=== PATIENT | male | born 1995 | race Caucasian/White ===

== ENCOUNTER 2018-12-18 19:12 | Emergency (ER) | payer OTHER ==
[2018-12-18 19:29] VITALS: TEMP 98.1; BMI 38.7
--- NOTE | 2018-12-18 19:34 | PDOC ---
Rapid Medical Evaluation Chief Complaint: Pain Time Seen by Provider: 12/18/18 19:29 Medical Evaluation: Allergies Allergy/AdvReac Type Severity Reaction Status Date / Time No Known Allergies Allergy Verified 12/18/18 19:30 Vital Signs Temp Pulse Resp BP Pulse Ox 98.1 F 98 H 18 122/77 98 12/18/18 19:25 12/18/18 19:25 12/18/18 19:25 12/18/18 19:25 12/18/18 19:25 12/18/18 19:30 I have performed a brief in-person evaluation of this patient. The patient presents with a chief complaint of:epigastric/ruq pain x 2 week w/ nausea Pertinent physical exam findings:stable and well immanuel w/ +ttp to epigastrium I have ordered the following:labs The patient will proceed to the ED for further evaluation. Discharge Disposition - Diagnosis Abdominal pain Qualifiers: Abdominal location: upper abdomen, unspecified Qualified Code(s): R10.10 - Upper abdominal pain, unspecified - Referrals - Patient Instructions - Post Discharge Activity
[2018-12-18] MEDS ORDERED: ACETAMINOPHEN 1000 MG/100 ML VIAL (NON FORMULARY) IVPB ONE (21:20)
[2018-12-18] MEDS ORDERED: SODIUM CHLORIDE 0.9% 500 ML INFUS.BAG IV ONE (21:20)
[2018-12-18 21:26] LABS: BASO % 0.6 % (0-2.0); EOS % 1.5 % (0-4.5); HEMOGLOBIN 14.9 GM/dL (11.7-16.9); LYMPH % 29.2 % (8-40); MCH 28.3 pg (25.7-33.7); MCHC 33.8 g/dl (32.0-35.9); MEAN CELL VOLUME 83.7 fl (80-96); MEAN PLT VOLUME 7.4 fl (7.5-11.1); MONO % 7.2 % (3.8-10.2); NEUT % 61.5 % (42.8-82.8); PLATELET COUNT 222 K/MM3 (134-434); RBC 5.26 M/mm3 (4.00-5.60); WHITE BLOOD COUNT 11.8 K/mm3 (4.0-10.0)
[2018-12-18] MEDS ORDERED: ACETAMINOPHEN INJECTION 100 ML IVPB ONE (21:28)
--- NOTE | 2018-12-18 21:29 | PDOC ---
History of Present Illness - General Chief Complaint: Pain Stated Complaint: ABD PAIN Time Seen by Provider: 12/18/18 19:29 - History of Present Illness Initial Comments: The pt is a 23M who presents w/ 2 weeks of epigastric/RUQ abdominal pain. The pain is described as intermittent, non-radiating, not exacerbated or alleviated by anything he can identify, is associated with nausea. He has never had pain like this before and has not tried taking anything for the pain. The pain is not associated w/ meals. When it occurs it lasts for several minutes at a time and will resolve spontaneously. Denies fevers/chills, SUH, vision changes, SOB, or changes in sensation/strength 12/18/18 21:22 Past History - Past Medical History Allergies/Adverse Reactions: Allergies Allergy/AdvReac Type Severity Reaction Status Date / Time No Known Allergies Allergy Verified 12/18/18 19:30 Home Medications: Ambulatory Orders NK [No Known Home Medication] 02/19/15 COPD: No - Immunization History Immunization Up to Date: Yes - Suicide/Smoking/Psychosocial Hx Smoking Status: No Smoking History: Never smoked Have you smoked in the past 12 months: Yes Number of Cigarettes Smoked Daily: 3 Cigars Per Day: 0 Hx Alcohol Use: No Drug/Substance Use Hx: No Substance Use Type: None Review of Systems - Review of Systems Able to Perform ROS?: Yes Comments:: GENERAL/CONSTITUTIONAL: No fever or chills. No weakness HEAD, EYES, EARS, NOSE AND THROAT: No change in vision. No ear pain or discharge. No sore throat CARDIOVASCULAR: No chest pain or shortness of breath RESPIRATORY: Denies cough, hemoptysis GENITOURINARY: No dysuria, frequency, or change in urination MUSCULOSKELETAL: No joint or muscle swelling or pain. No neck or back pain SKIN: No rash NEUROLOGIC: No headache, vertigo, loss of consciousness, or change in strength/ sensation ENDOCRINE: No increased thirst. No abnormal weight change HEMATOLOGIC/LYMPHATIC: No anemia, easy bleeding, or history of blood clots ALLERGIC/IMMUNOLOGIC: No hives or skin allergy 12/18/18 21:29 Is the patient limited Tuvaluan proficient: No *Physical Exam - Vital Signs Last Vital Signs Temp Pulse Resp BP Pulse Ox 98.1 F 98 H 18 122/77 98 12/18/18 19:25 12/18/18 19:25 12/18/18 19:25 12/18/18 19:25 12/18/18 19:25 - Physical Exam Comments: GENERAL: Awake, alert, and oriented to person/place/time, in no acute distress HEAD: No signs of trauma, normocephalic, atraumatic EYES: PERRLA, EOMI, sclera anicteric, conjunctiva clear ENT: Hearing grossly normal, nares patent, oropharynx clear without exudates. Moist mucosa LUNGS: No distress, speaks full sentences, clear to auscultation bilaterally HEART: Regular rate and rhythm, normal S1 and S2, no murmurs appreciated, peripheral pulses normal and equal bilaterally ABDOMEN: Soft, RUQ/epigastric TTP w/ +Landaverde's sign w/o rebound or guarding, normoactive bowel sounds EXTREMITIES: Normal inspection, Normal range of motion, no edema. No clubbing or cyanosis NEUROLOGICAL: Cranial nerves II through XII grossly intact. Normal speech, no focal sensorimotor deficits SKIN: Warm, Dry 12/18/18 21:29 ED Treatment Course - LABORATORY CBC & Chemistry Diagram: 12/18/18 21:00 12/18/18 21:00 - RADIOLOGY Radiology Studies Ordered: Category Date Time Status ABDOMEN US -LIMITED [US] Stat Ultrasound 12/18/18 21:20 Ordered Medical Decision Making - Medical Decision Making The pt is a 23M w/ no reported PMH who presents for evaluation of 2 weeks of intermittent epigastric abdominal pain w/ associated nausea. DDx: cholecysitits/cholelithiasis/choledocholithiasis, nephrolithiasis, PUD, less likely pancreatitis, SBO, pyelonephritis ED Course Labs sent RUQ U/S IVF Ofirmev 1g IV once 12/18/18 21:30 No anemia Lytes wnl LFTs wnl Lipase wnl UA w/o evidence of UTI US pending 12/18/18 22:12 US w/o cholelithiaiasis or cholecystitis Plan for D/C w/ PCP f/u Discharge instructions and return precautions given Pt in agreement and verbalized understanding Dispo: home 12/18/18 23:21 *DC/Admit/Observation/Transfer Diagnosis at time of Disposition: Abdominal pain Qualifiers: Abdominal location: upper abdomen, unspecified Qualified Code(s): R10.10 - Upper abdominal pain, unspecified - Discharge Dispostion Disposition: HOME Condition at time of disposition: Improved Decision to Admit order: No - Referrals Referrals: Elizabeth Franklin MD [Staff Physician] - - Patient Instructions Printed Discharge Instructions: DI for Peptic Ulcer Additional Instructions: You were seen in the Emergency Department for evaluation of abdominal pain. Your labs were unremarkable and your imaging was negative for acute pathology. Review the handout provided at discharge. Follow up with your primary care provider or the referral provided. You may take Maalox and Pepcid over the counter for your symptoms. Return to the Emergency Department if you develop fevers/chills, worsening pain, inability to tolerate food/drink, or any new/ concerning symptoms. - Post Discharge Activity
[2018-12-18 21:57] LABS: ALBUMIN 3.7 g/dl (3.4-5.0); ALK PHOS 110 U/L (45-117); ANION GAP 8 MMOL/L (8-16); BILIRUBIN,TOTAL 0.2 mg/dL (0.2-1); BLOOD UREA NITROGEN 17 mg/dL (7-18); CALCIUM 8.8 mg/dL (8.5-10.1); CHLORIDE 109 mmol/L (98-107); CO2 25 mmol/L (21-32); CREATININE 1.3 mg/dL (0.55-1.3); GLUCOSE,RANDOM 113 mg/dL (74-106); LIPASE 74 U/L (73-393); POTASSIUM 4.1 mmol/L (3.5-5.1); SGOT/AST 20 U/L (15-37); SGPT/ALT 31 U/L (13-61); SODIUM 142 mmol/L (136-145); TOT PROT 6.9 g/dl (6.4-8.2)
[2018-12-18 22:04] LABS: URINE APPEARANCE CLEAR; URINE BILIRUBIN NEGATIVE (NEGATIVE); URINE COLOR YELLOW; URINE GLUCOSE (UA) NEGATIVE (NEGATIVE); URINE KETONE TRACE (NEGATIVE); URINE LEUK ESTERASE NEGATIVE (NEGATIVE); URINE NITRITE NEGATIVE (NEGATIVE); URINE PROTEIN NEGATIVE (NEGATIVE); URINE UROBILINOGEN 0.2 mg/dL (0.2-1.0)
[2018-12-18 23:47] VITALS: BP 138/72; PULSE 83
== END 2018-12-18 23:46 | disposition home or self-care (01) ==
LOC: JER 19:12
PROC: 3E033NZ Introduction of Analgesics, Hypnotics, Sedatives into Peripheral Vein, Percutaneous Approach (ICD-10-PCS; principal; 2018-12-18)
DX: K21.9 Gastro-esophageal reflux disease without esophagitis (principal)
CPT/HCPCS: 36415; 76705-TC; 80053; 81003; 83690; 85025; 99282-25; J0131

== ENCOUNTER 2018-12-20 04:40 | Day surgery (SDC) | payer OTHER ==
[2018-12-20 05:55] VITALS: BMI 38.7
[2018-12-20] MEDS ORDERED: SODIUM CHLORIDE 0.9% 500 ML INFUS.BAG IV ONE (05:58)
[2018-12-20 06:38] LABS: HEMATOCRIT 43.1 % (35.4-49); HEMOGLOBIN 14.8 GM/dL (11.7-16.9); MCH 28.2 pg (25.7-33.7); MCHC 34.3 g/dl (32.0-35.9); MEAN CELL VOLUME 82.3 fl (80-96); MEAN PLT VOLUME 7.2 fl (7.5-11.1); PLATELET COUNT 251 K/MM3 (134-434); RBC 5.24 M/mm3 (4.00-5.60); RDW 14.5 % (11.9-15.9); WHITE BLOOD COUNT 13.8 K/mm3 (4.0-10.0)
[2018-12-20 07:14] LABS: ALBUMIN 3.7 g/dl (3.4-5.0); ALK PHOS 109 U/L (45-117); ANION GAP 8 MMOL/L (8-16); BILIRUBIN,TOTAL 0.6 mg/dL (0.2-1); BLOOD UREA NITROGEN 10 mg/dL (7-18); CALCIUM 9.1 mg/dL (8.5-10.1); CHLORIDE 105 mmol/L (98-107); CO2 24 mmol/L (21-32); GLUCOSE,RANDOM 86 mg/dL (74-106); LIPASE 56 U/L (73-393); POTASSIUM 3.9 mmol/L (3.5-5.1); SGOT/AST 20 U/L (15-37); SGPT/ALT 28 U/L (13-61); SODIUM 136 mmol/L (136-145); TOT PROT 7.4 g/dl (6.4-8.2)
[2018-12-20] MEDS ORDERED: ONDANSETRON 4 MG/2 ML VIAL IVPUSH ONE (07:34)
[2018-12-20] MEDS ORDERED: morphine CARPU-JECT 4 MG/1 ML DISP.SYRIN IVPUSH ONE ×2 (07:34→11:50)
[2018-12-20] MEDS ORDERED: ONDANSETRON 4 MG/2 ML VIAL ONE (07:40)
[2018-12-20] MEDS ORDERED: morphine SULFATE 4 MG/ML VIAL ONE ×2 (07:40→11:51)
--- NOTE | 2018-12-20 08:37 | PDOC ---
Documentation entered by Myah Denson SCRIBE, acting as scribe for Felisha Quiroga MD. Felisha Quiroga MD: This documentation has been prepared by the zoeibe, Myah Denson SCRIBE, under my direction and personally reviewed by me in its entirety. I confirm that the documentation accurately reflects all work, treatment, procedures, and medical decision making performed by me. History of Present Illness - General Chief Complaint: Pain Stated Complaint: ABD PAIN History Source: Patient Exam Limitations: No Limitations - History of Present Illness Initial Comments: 12/20/18 07:59 23 yo M no pmhx here with abdominal pain since last night. The patient states that he was at home last night when he felt an onset of diffuse abdominal pain. The patient reports some associated cold sweats. Constipation and nausea. last bm was yesterday. no vomiting. no sick contacts. pain worse with walking . was seen in ed yesterday, had labs ua and us ruq which was unremarakble. dc home. woke up today feeling worse so he came to the ED. the patient denies any recent or past abdominal surgeries or trauma. He denies any dysuria or hematuria. The patient denies any fever, vomiting, headache, dizziness, weakness, chest pain or shortness of breath. The patient denies any other complaints. 12/20/18 08:22 Past History - Past Medical History Allergies/Adverse Reactions: Allergies Allergy/AdvReac Type Severity Reaction Status Date / Time No Known Allergies Allergy Verified 12/20/18 05:55 Home Medications: Ambulatory Orders NK [No Known Home Medication] 02/19/15 COPD: No - Immunization History Immunization Up to Date: Yes - Suicide/Smoking/Psychosocial Hx Smoking Status: No Smoking History: Never smoked Have you smoked in the past 12 months: No Number of Cigarettes Smoked Daily: 3 Cigars Per Day: 0 Information on smoking cessation initiated: No Hx Alcohol Use: No Drug/Substance Use Hx: No Substance Use Type: None Review of Systems - Review of Systems Able to Perform ROS?: Yes Comments:: 12/20/18 07:59 GENERAL/CONSTITUTIONAL: No fever or chills. No weakness. HEAD, EYES, EARS, NOSE AND THROAT: No change in vision. No ear pain or discharge. No sore throat. CARDIOVASCULAR: No chest pain or shortness of breath. RESPIRATORY: No cough, wheezing, or hemoptysis. GASTROINTESTINAL:(+)abdominal pain, nausea. Constipation. No vomiting, diarrhea. GENITOURINARY: No dysuria, frequency, or change in urination. MUSCULOSKELETAL: No joint or muscle swelling or pain. No neck or back pain. SKIN: No rash NEUROLOGIC: No headache, vertigo, loss of consciousness, or change in strength/ sensation. ENDOCRINE: No increased thirst. No abnormal weight change. HEMATOLOGIC/LYMPHATIC: No anemia, easy bleeding, or history of blood clots. ALLERGIC/IMMUNOLOGIC: No hives or skin allergy. Constitutional: No: Chills, Diaphoresis, Fever HEENTM: No: Eye Pain Respiratory: No: Cough, Orthopnea Cardiac (ROS): No: Chest Pain, Edema ABD/GI: Yes: Constipated, Nausea, Other (abd pain) : No: Burning, Dysuria Musculoskeletal: No: Back Pain Neurological: No: Headache All Other Systems: Reviewed and Negative *Physical Exam - Vital Signs Last Vital Signs Temp Pulse Resp BP Pulse Ox 98.1 F 64 18 135/78 97 12/20/18 04:45 12/20/18 04:45 12/20/18 04:45 12/20/18 04:45 12/20/18 04:45 - Physical Exam Comments: 12/20/18 08:24 awake alert lungs clear bilaterally heart rrr no mrg abd soft RLQ ttp, right mid quad ttp. no rebound no guarding. skin warm and dry. nuero alert oriented x 3. ED Treatment Course - LABORATORY CBC & Chemistry Diagram: 12/20/18 06:20 12/20/18 06:20 - ADDITIONAL ORDERS Additional order review: Laboratory Results 12/20/18 06:20 Sodium 136 Potassium 3.9 Chloride 105 Carbon Dioxide 24 Anion Gap 8 BUN 10 Creatinine 1.0 Creat Clearance w eGFR 93.44 Random Glucose 86 Calcium 9.1 Total Bilirubin 0.6 AST 20 ALT 28 Alkaline Phosphatase 109 Total Protein 7.4 Albumin 3.7 Lipase 56 L 12/20/18 06:20 RBC 5.24 MCV 82.3 MCHC 34.3 RDW 14.5 MPV 7.2 L - RADIOLOGY Radiology Studies Ordered: Category Date Time Status ABDOMEN & PELVIS CT WITH CONTR [CT] Stat CT Scan 12/20/18 07:36 Ordered - Medications Given in the ED: ED Medications Discontinued Medications Generic Name Dose Route Start Last Admin Trade Name Tanoq PRN Reason Stop Dose Admin Sodium Chloride 1,000 ml 12/20/18 05:58 12/20/18 06:24 Normal Saline - IV 12/20/18 05:59 1,000 ml ONCE ONE Administration Medical Decision Making - Medical Decision Making 12/20/18 08:25 23 yo second ed visit for right sided abd pain. differential appendicitis, renal colic, uti pyelo less likely. plan labs ivf, ct a/p. pain control. 12/20/18 11:[address] with appendicitis. abx ordered. given iv fluids. bolus and pain control. surgery consulted *DC/Admit/Observation/Transfer Diagnosis at time of Disposition: Appendicitis - Discharge Dispostion Condition at time of disposition: Fair Decision to Admit order: Yes - Referrals - Patient Instructions - Post Discharge Activity
[2018-12-20 10:25] LABS: URINE APPEARANCE CLEAR; URINE BILIRUBIN NEGATIVE (NEGATIVE); URINE COLOR YELLOW; URINE GLUCOSE (UA) NEGATIVE (NEGATIVE); URINE KETONE TRACE (NEGATIVE); URINE LEUK ESTERASE NEGATIVE (NEGATIVE); URINE NITRITE NEGATIVE (NEGATIVE); URINE PROTEIN NEGATIVE (NEGATIVE); URINE UROBILINOGEN 0.2 mg/dL (0.2-1.0)
[2018-12-20] MEDS ORDERED: SODIUM CHLORIDE 0.9% 1000 ML INFUS.BAG IV ONE (11:49)
[2018-12-20] MEDS ORDERED: PIPERACILLIN/TAZOB 3.375 GM 3.375 GM in DEXTROSE 5%-WATER - 50 ML IVPB ONE (11:50)
[2018-12-20] MEDS ORDERED: SODIUM CHLORIDE 1,000 ML IV SCH (12:00)
[2018-12-20] MEDS ORDERED: PIPERACILLIN/TAZOB 3.375 GM 3.375 GM/50 ML BAG IVPB ONE (12:33)
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
[2018-12-20 13:06] LABS: INR 1.17 (0.83-1.09); PROTHROMBIN TIME (PATIENT) 13.8 SEC (9.7-13.0)
[2018-12-20 13:09] LABS: ACTIVATED PTT 37.7 SECONDS (25.2-36.5)
[2018-12-20] MEDS ORDERED: LACTATED RINGERS SOLUTION 1,000 ML IV SCH ×3 (13:15→16:53)
[2018-12-20] MEDS ORDERED: ROCURONIUM BROMIDE 50 MG/5 ML VIAL ONE ×2 (13:43→14:18)
[2018-12-20] MEDS ORDERED: MIDAZOLAM HCL 2 MG/2 ML SINGLE DOSE VIAL ONE (13:43)
[2018-12-20] MEDS ORDERED: fentaNYL CITRATE 250 MCG/5 ML VIAL ONE (13:43)
[2018-12-20] MEDS ORDERED: PROPOFOL 20 ML ONE ×2 (13:43→14:12)
[2018-12-20] MEDS ORDERED: DEXAMETHASONE SOD PHOSPHATE 4 MG/1 ML VIAL ONE (13:46)
[2018-12-20] MEDS ORDERED: LIDOCAINE HCL/PF 2% SDV 5ML VIAL ONE (13:46)
[2018-12-20] MEDS ORDERED: BUPIVACAINE HCL/PF 0.5% (5MG/ML) 10 ML VIAL ONE (13:59)
[2018-12-20] MEDS ORDERED: BENZOIN TINCTURE SWABSTICK TP ONE (14:00)
[2018-12-20] MEDS ORDERED: BUPIVACAINE HCL/PF 0.5% (5MG/ML) 10 ML VIAL IJ ONE ×2 (14:55)
[2018-12-20] MEDS ORDERED: PROMETHAZINE HCL 25 MG/1 ML VIAL IVPUSH PRN (15:22)
[2018-12-20] MEDS ORDERED: ONDANSETRON 4 MG/2 ML VIAL IVPUSH PRN (15:22)
[2018-12-20] MEDS ORDERED: GLYCOPYRROLATE 0.2 MG/1 ML VIAL ONE (16:00)
[2018-12-20] MEDS ORDERED: NEOSTIGMINE METHYLSULFATE 0.5 MG/ML - 10 ML MDV ONE (16:00)
--- NOTE | 2018-12-20 16:39 | OP ---
Operative Note - Note: Operative Date: 12/20/18 Pre-Operative Diagnosis: acute appendicitis with localized peritonitis Operation: laparoscopic appendectomy Findings: enlarged, inflamed appendix, stuck to RLQ sidewall, scant light yellow fluid in pelvis suctioned Post-Operative Diagnosis: Same as Pre-op Surgeon: Boom Stanton Anesthesiologist/MARKETING OPERATIONS SPECIALIST: Eli Rojas Anesthesia: General, Local (20ml 0.5% marcaine) Specimens Removed: appendix to pathology Estimated Blood Loss (mls): 10 Drains & Tubes with Location: Crow out at end of case Drains, Volume Out (mls): 300 (UOP) Fluid Volume Replaced (mls): 800 (crystalloid) Operative Report Dictated: Yes
[2018-12-20] MEDS ORDERED: ACETAMINOPHEN 1000 MG/100 ML VIAL (NON FORMULARY) IVPB ONE ×2 (16:43→16:53)
[2018-12-20] MEDS ORDERED: ACETAMINOPHEN INJECTION 100 ML IVPB ONE (16:48)
[2018-12-20] MEDS ORDERED: PIPERACILLIN/TAZOB 3.375 GM 3.375 GM in DEXTROSE 5%-WATER - 50 ML IVPB SCH (18:30)
[2018-12-20] MEDS: PIPERACILLIN/TAZOB 3.375 GM 3.375 GM in DEXTROSE 5%-WATER - 50 ML IVPB SCH (18:34)
[2018-12-20] MEDS ORDERED: IBUPROFEN 600 MG TABLET (FP) PO SCH (21:00)
[2018-12-20] MEDS: IBUPROFEN 600 MG TABLET (FP) PO SCH (22:55)
[2018-12-21] MEDS ORDERED: ACETAMINOPHEN 325 MG TABLET (FP) PO SCH
[2018-12-21] MEDS: PIPERACILLIN/TAZOB 3.375 GM 3.375 GM in DEXTROSE 5%-WATER - 50 ML IVPB SCH ×2 (00:27→06:40)
[2018-12-21] MEDS: ACETAMINOPHEN 325 MG TABLET (FP) PO SCH ×3 (00:53→12:18)
[2018-12-21] MEDS ORDERED: DEXTROSE 5%-WATER - 50 ML IVPB ONE ×2 (01:16→08:28)
[2018-12-21] MEDS ORDERED: PIPERACILLIN/TAZOBACTAM 3.375 GM VIAL IVPB ONE ×2 (01:16→08:28)
[2018-12-21] MEDS: IBUPROFEN 600 MG TABLET (FP) PO SCH ×2 (03:15→09:11)
[2018-12-21 13:43] VITALS: BP 135/66; PULSE 86; TEMP 98.8
--- NOTE | 2018-12-21 14:23 | DS ---
Physical Examination Vital Signs: Vital Signs Temperature 98.8 F 12/21/18 10:00 Pulse Rate 86 12/21/18 10:00 Respiratory Rate 20 12/21/18 10:00 Blood Pressure 135/66 12/21/18 10:00 O2 Sat by Pulse Oximetry (%) 96 12/21/18 09:00 Findings/Remarks: Pt seen and examined in bed, family present. States he is feeling much better. Ambulated, voided, loose/liquid BM, tolerating diet. Pain was more last night, but today has been well-controlled with alternating tylenol and ibuprofen. Has some right shoulder pain. Constitutional: Yes: No Distress, Calm, Obese Eyes: Yes: Conjunctiva Clear HENT: Yes: Atraumatic, Normocephalic Cardiovascular: Yes: Regular Rate and Rhythm Respiratory: Yes: Regular, CTA Bilaterally Gastrointestinal: Yes: Normal Bowel Sounds, Soft, Abdomen, Obese, Tenderness ( mild RLQ, RUQ and incisional (mainly umbilical), no frank/guard) Extremities: No: Cool, Cyanosis Integumentary: Yes: Incision (x3 dressed), Tattoos. No: Jaundice, Rash Wound/Incision: Yes: Steri Strips (under dressings), Dressing Dry and Intact (x3 ). No: Dressing Removed Neurological: Yes: Alert, Oriented Labs: no new labs Discharge Summary Reason For Visit: APPENDICITIS Current Active Problems Acute appendicitis with localized peritonitis, without gangrene or abscess ( Acute) Anorexia (Acute) Nausea alone (Acute) RLQ abdominal pain (Acute) RUQ pain (Acute) Procedures: Principal: laparoscopic appendectomy Hospital Course: 23yo obese M smoker (occasional cigs, frequent marijuana) presented to ER with RUQ pain initially, getting progressively worse and ultimately also radiating to RLQ. He had been seen in ER a day prior, had US showing no gallstones, and was d/c home, but returned with worse pain. WBC 13, CT showed acute appendicitis. He was taken for laparoscopic appendectomy with findings of enlarged, inflamed appendix stuck to RLQ sidewall. He received perioperative Zosyn and IV fluids. Postop, he has tolerated diet, ambulated, voided, and had + loose BM (from oral contrast). He is feeling better this morning, and pain is controlled with alternating nonnarcotic meds. Some right shoulder pain is likely from diaphragmatic irritation and should resolve in a few days. He is ready for d/c home with lifting restrictions to f/u with surgery in 2-3 weeks. He is given referrals for possible PMD to establish care with and encouraged to do so within the next week. He plans a family trip to [facility] next week and knows he cannot lift his own luggage nor swim on the trip yet. Time spent on discharge: 35 minutes. Condition: Good - Instructions Diet, Activity, Other Instructions: Postoperative instructions: You had a laparoscopic appendectomy on 12/20/[address] Boom Stanton of [facility]. Activity: Resume your usual activities gradually, but no heavy exertion or lifting more than 10-15 pounds for 1 month. Remove dressings 48 hours after surgery; sticky tapes underneath will fall off by themselves. You may shower daily starting then, just pat the incision areas dry. No bath or swimming until skin incisions have completely healed. Eat lightly at first, but advance to your usual diet as tolerated. Pain: For pain, you may use and alternate Tylenol (acetaminophen) 1-2 pills and/ or ibuprofen 200 mg (1-3 pills) every 6 hours each as needed; this means that you can take one OR the other at 3-hour intervals. If you are prescribed a Tylenol/narcotic combination for severe pain, use it instead of plain Tylenol as needed and switch back when your pain starts decreasing. Do not take more than 4000mg of acetaminophen in a day. Take medications as prescribed or indicated on the labeling. Follow-up: Call Dr. Stanton's office at [phone] to make your postop appointment (Tuesday in 2-3 weeks after surgery). Clinic is held in the [facility] on the first floor of [facility]. Call the office if you have: * increasing pain not responsive to pain medication * fever of 101F or higher * vomiting * unusual or increasing bleeding or drainage from wounds * increasing redness or swelling at wound sites Also, call for an appointment to establish care with a primary medical doctor within 1-2 weeks. You have been given referrals to physicians with offices across from the hospital, or you may see a medical doctor within your network of your choosing. Referrals: Julio Sanchez MD [Staff Physician] - Varinder Melo MD [Staff Physician] - Disposition: HOME - Home Medications Comprehensive Discharge Medication List: Ambulatory Orders Acetaminophen [Tylenol .Regular Strength -] 650 mg PO Q6H tablet 12/21/18 Ibuprofen [Motrin -] 600 mg PO Q6H tablet 12/21/18
--- NOTE | 2018-12-22 14:22 | PATH ---
Surgical Pathology Report Patient Name: AGUSTIN DANIEL [facility]. Rec. #: [id number] /Age/Gender: 1995 (Age: 23) / M Account: [id number] Location: AMBULATORY SURG Taken: 12/20/2018 Received: 12/21/2018 Reported: 12/22/2018 Physicians: Boom Stanton M.D. PHYSICIAN EMERGENCY DEPT Specimen(s) Received APPENDIX Clinical History Acute appendicitis Final Diagnosis APPENDIX, APPENDECTOMY: ACUTE APPENDICITIS AND PERIAPPENDICITIS. Electronically Signed Leon Lima M.D. Gross Description Received in formalin, labeled "appendix," is a 9 cm. in length vermiform appendix with a stapled margin of resection and abundant attached fat. The serosa is jimenez-zamora with attached exudate and adhesions. Sectioning reveals a dilated lumen containing blood and pus. The wall of the appendix averages 0.1 cm. in thickness. Ad Copy Writer sections are submitted in one cassette. /12/21/2018 saudi/12/21/2018
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
== END 2018-12-21 14:52 | disposition home or self-care (01) ==
LOC: JER 04:40 → JASUSAT 11:53 → J8W 19:20 → JASUSAT 12-21 14:52
PROVIDERS: ATTEND Surgery
PROC: 0DTJ4ZZ Resection of Appendix, Percutaneous Endoscopic Approach (ICD-10-PCS; principal; 2018-12-20 13:30)
DX: K35.30 Acute appendicitis with localized peritonitis, without perforation or gangrene (principal)
CPT/HCPCS: 36415; 74177-TC; 80053; 81003; 83690; 85027; 85610; 85730; 86850; 86900; 86901; 88304-TC; 94760; 99285-25; J0131; J7030

== ENCOUNTER 2019-11-06 13:20 | Emergency (ER) | payer SELFPAY ==
[2019-11-06] MEDS ORDERED: IBUPROFEN 600 MG TABLET (FP) PO ONE ×2 (13:31→13:33)
--- NOTE | 2019-11-06 13:31 | PDOC ---
Rapid Medical Evaluation Chief Complaint: Injury Time Seen by Provider: 11/06/19 13:29 Medical Evaluation: Allergies Allergy/AdvReac Type Severity Reaction Status Date / Time No Known Allergies Allergy Verified 12/20/18 05:55 11/06/19 13:29 I have performed a brief in-person evaluation of this patient. The patient presents with a chief complaint of: Left ankle injury sustained yesterday while playing soccer. Someone fell on his ankle. Unable to bear weight at all. Pertinent physical exam findings: stable, externally rotated foot, sensation intact distally I have ordered the following: ankle/foot xray, motrin The patient will proceed to the ED for further evaluation Discharge Disposition - Diagnosis Left ankle injury - Referrals - Patient Instructions - Post Discharge Activity
[2019-11-06 13:33] VITALS: BP 138/78; PULSE 84; TEMP 98.2; BMI 36.8
--- NOTE | 2019-11-06 14:00 | PDOC ---
History of Present Illness - General Chief Complaint: Injury Stated Complaint: FOOT INJURY/PAIN Time Seen by Provider: 11/06/19 13:29 - History of Present Illness Initial Comments: 11/06/19 13:58 24-year-old male without comorbidities presents for evaluation of left foot injury he describes a supination type injury while playing soccer last night. He points to the dorsum of the left foot as the area of his discomfort Past History - Past Medical History Allergies/Adverse Reactions: Allergies Allergy/AdvReac Type Severity Reaction Status Date / Time No Known Allergies Allergy Verified 11/06/19 13:33 Home Medications: Ambulatory Orders Acetaminophen [Tylenol .Regular Strength -] 650 mg PO Q6H tablet 12/21/18 Ibuprofen [Motrin -] 600 mg PO Q6H tablet 12/21/18 COPD: No - Immunization History Immunization Up to Date: Yes - Psycho Social/Smoking Cessation Hx Smoking Status: No Smoking History: Current every day smoker Have you smoked in the past 12 months: Yes Number of Cigarettes Smoked Daily: 10 Cigars Per Day: 0 Information on smoking cessation initiated: No Hx Alcohol Use: No Drug/Substance Use Hx: No Substance Use Type: None Review of Systems - Review of Systems Musculoskeletal: Yes: Joint Pain *Physical Exam - Vital Signs Last Vital Signs Temp Pulse Resp BP Pulse Ox 98.2 F 84 18 138/78 100 11/06/19 13:31 11/06/19 13:31 11/06/19 13:31 11/06/19 13:31 11/06/19 13:31 - Physical Exam 11/06/19 13:58 Left foot skin color and temperature are normal there is moderate swelling at the dorsum of the foot diffuse tenderness about the dorsum of the foot most notably over the Lisfranc joint there are no gross sensorimotor deficits no tenderness about the medial lateral malleolus or ATFL base of the fifth metatarsal. Knee proximal fibula and fibular shaft are nontender. Thigh and calf are soft and nontender neurovascular intact ED Treatment Course - Medications Given in the ED: ED Medications Discontinued Medications Generic Name Dose Route Start Last Admin Trade Name Freq PRN Reason Stop Dose Admin Ibuprofen 600 mg 11/06/19 13:31 11/06/19 13:38 Motrin - PO 11/06/19 13:32 600 mg ONCE ONE Administration Medical Decision Making - Medical Decision Making 11/06/19 13:59 No obvious fracture trauma or destructive process on radiographs of the left foot and ankle. Left foot sprain most likely Lisfranc injury Priest wrap nonweightbearing follow-up with orthopedics I have reviewed the pathophysiology with the patient. They are in agreement with the treatment plan all questions were answered to their satisfaction. Understanding for follow-up without fail was also conveyed to the patient. Again they are in agreement. Discharge - Discharge Information Problems reviewed: Yes Clinical Impression/Diagnosis: Sprain of left foot Clinical Impression/Diagnosis: (Ruled Out): Left ankle injury Condition: Stable Disposition: HOME - Admission No - Follow up/Referral Referrals: Jacobo Jacobs DO [Staff Physician] - - Patient Discharge Instructions Additional Instructions: Remain nonweightbearing with crutches and the Priest wrap. Strict elevation Tylenol and Motrin for pain as directed. Return to the emergency room for worsening symptoms and without fail follow-up with orthopedic surgery in 2 to 3 days for further evaluation and treatment options. - Post Discharge Activity
== END 2019-11-06 14:21 | disposition home or self-care (01) ==
LOC: JERFT 13:20
DX: S93.692A Other sprain of left foot, initial encounter (principal); W03.XXXA Other fall on same level due to collision with another person, initial encounter; Y93.66 Activity, soccer; Y92.322 Soccer field as the place of occurrence of the external cause; Y99.8 Other external cause status
CPT/HCPCS: 73610-TC-LT-FY; 73630-TC-LT; 99283-25

== ENCOUNTER 2023-11-28 11:41 | Emergency (ER) | payer OTHER ==
[2023-11-28] MEDS ORDERED: KETOROLAC TROMETHAMINE 30 MG/1 ML VIAL ONE (12:21)
[2023-11-28] MEDS ORDERED: LIDOCAINE 4% PATCH TP ONE (12:21)
[2023-11-28] MEDS ORDERED: METHOCARBAMOL 500 MG TABLET ONE (12:21)
[2023-11-28] MEDS ORDERED: ACETAMINOPHEN 500 MG TABLET (FP) ONE (12:22)
[2023-11-28] MEDS: LIDOCAINE 4% PATCH TP ONE (12:28)
[2023-11-28] MEDS: METHOCARBAMOL 500 MG TABLET PO ONE (12:29)
[2023-11-28] MEDS: KETOROLAC TROMETHAMINE 30 MG/1 ML VIAL IM ONE (12:30)
[2023-11-28] MEDS: ACETAMINOPHEN 500 MG TABLET (FP) PO ONE (12:31)
[2023-11-28 12:49] LABS: PH,URINE 5.5 (5.0-8.0); URINE APPEARANCE CLEAR; URINE BILIRUBIN NEGATIVE (NEGATIVE); URINE COLOR YELLOW; URINE GLUCOSE (UA) NEGATIVE (NEGATIVE); URINE KETONE NEGATIVE (NEGATIVE); URINE LEUK ESTERASE NEGATIVE (NEGATIVE); URINE NITRITE NEGATIVE (NEGATIVE); URINE PROTEIN NEGATIVE (NEGATIVE); URINE UROBILINOGEN 0.2 mg/dL (0.2-1.0)
[2023-11-28 13:04] VITALS: BP 134/70; PULSE 87; RESP 18; TEMP 98.2; BMI 39.9
[2023-11-28] MEDS ORDERED: oxyCODONE HCL 5 MG TABLET ONE (14:33)
[2023-11-28] MEDS: oxyCODONE HCL 5 MG TABLET PO ONE (14:35)
[2023-11-28] MEDS ORDERED: LIDOCAINE PATCH REMOVAL MC SCH (22:00)
== END 2023-11-28 16:51 | disposition home or self-care (01) ==
LOC: JERFT 11:41
PROC: 3E0233Z Introduction of Anti-inflammatory into Muscle, Percutaneous Approach (ICD-10-PCS; principal; 2023-11-28)
DX: M54.50 Low back pain, unspecified (principal); R10.30 Lower abdominal pain, unspecified; R35.0 Frequency of micturition; R39.15 Urgency of urination; M54.16 Radiculopathy, lumbar region
CPT/HCPCS: 72100-TC-FY; 74176-TC; 81003; 87086; 99285-25

== ENCOUNTER 2023-12-04 12:36 | Emergency (ER) | payer OTHER ==
[2023-12-04 12:42] VITALS: BP 125/95; PULSE 97; RESP 18; TEMP 98.9; BMI 39.9
[2023-12-04] MEDS ORDERED: LIDOCAINE 4% PATCH TP ONE (14:24)
[2023-12-04] MEDS: LIDOCAINE 4% PATCH TP ONE (14:30)
[2023-12-04] MEDS ORDERED: KETOROLAC TROMETHAMINE 30 MG/1 ML VIAL ONE (14:35)
[2023-12-04] MEDS ORDERED: diazePAM CARPU-JECT 10 MG/2 ML DISP.SYRIN ONE (14:35)
[2023-12-04] MEDS ORDERED: DEXAMETHASONE SOD PHOSPHATE 10 MG/1 ML VIAL ONE (14:35)
[2023-12-04] MEDS: KETOROLAC TROMETHAMINE 30 MG/1 ML VIAL IVPUSH ONE (14:46)
[2023-12-04] MEDS: diazePAM CARPU-JECT 10 MG/2 ML DISP.SYRIN IVPUSH ONE (14:46)
[2023-12-04] MEDS: DEXAMETHASONE SOD PHOSPHATE 10 MG/1 ML VIAL IVPUSH ONE (14:46)
[2023-12-04] MEDS ORDERED: LIDOCAINE PATCH REMOVAL MC SCH (22:00)
== END 2023-12-04 17:01 | disposition home or self-care (01) ==
LOC: JERFT 12:36
PROC: 3E033GC Introduction of Other Therapeutic Substance into Peripheral Vein, Percutaneous Approach (ICD-10-PCS; principal; 2023-12-04)
PROC: 3E033GC Introduction of Other Therapeutic Substance into Peripheral Vein, Percutaneous Approach (ICD-10-PCS; 2023-12-04)
PROC: 3E0333Z Introduction of Anti-inflammatory into Peripheral Vein, Percutaneous Approach (ICD-10-PCS; 2023-12-04)
DX: M54.41 Lumbago with sciatica, right side (principal); M54.42 Lumbago with sciatica, left side; M54.16 Radiculopathy, lumbar region
CPT/HCPCS: 72131-TC; 99284-25; J1100